=== PATIENT | male | born 1990 | race Two or more races ===

== ENCOUNTER 2018-07-26 09:23 | Emergency (ER) | payer OTHER ==
[~2018-07-26] VITALS: Ht 170.2 cm; Wt 94.8 kg
[~2018-07-26 09:23] MED LIST: DURICEF 500 MG; TENCON TABLET1 TAB PO
[2018-07-26] MEDS ORDERED: ZITHROMAX500 MG PO (11:24)
== END 2018-07-26 12:25 | disposition home or self-care (01) ==
LOC: ER 09:23
DX: J02.8 Acute pharyngitis due to other specified organisms (principal); B08.8 Other specified viral infections characterized by skin and mucous membrane lesions

== ENCOUNTER 2019-04-16 10:31 | Emergency (ER) | payer OTHER ==
[~2019-04-16] VITALS: Ht 175.3 cm; Wt 111.1 kg
[~2019-04-16 10:31] MED LIST changes: +ZITHROMAX500 MG PO
== END 2019-04-16 13:04 | disposition home or self-care (01) ==
LOC: ER 10:31
DX: G44.209 Tension-type headache, unspecified, not intractable (principal)

== ENCOUNTER 2023-01-18 01:41 | Emergency (ER) | payer OTHER ==
[~2023-01-18] VITALS: Ht 175.3 cm; Wt 83.9 kg
[2023-01-18] MEDS ORDERED: PEPCID AC20 MG PO (04:08)
== END 2023-01-18 04:14 | disposition home or self-care (01) ==
LOC: ER 01:41
DX: K29.70 Gastritis, unspecified, without bleeding (principal)

== ENCOUNTER 2023-03-30 05:55 | Day surgery (SDC) | payer OTHER ==
[~2023-03-30] VITALS: Ht 172.7 cm; Wt 83.9 kg
[~2023-03-30 05:55] MED LIST changes: +BENTYL10 MG/1 ML IM; +CARAFATE1 GM/10 ML PO; +PEPCID AC20 MG PO; +PROTONIX40 MG PO
== END 2023-03-30 14:50 | disposition home or self-care (01) ==
LOC: U 05:55 → CIR.AMB 05:55
PROVIDERS: ATTEND Surgery
DX: K80.10 Calculus of gallbladder with chronic cholecystitis without obstruction (principal); Z20.822 Contact with and (suspected) exposure to COVID-19